=== PATIENT | male | born 1990 | race African-American/Black ===

== ENCOUNTER 2018-09-13 02:55 | Emergency (ER) | payer SELFPAY ==
[~2018-09-13] VITALS: Ht 177.8 cm; Wt 133.0 kg
[2018-09-13] MEDS ORDERED: CEFTRIAXONE SODIUM 250 MG/VIAL IM ONE (03:30)
[2018-09-13] MEDS ORDERED: AZITHROMYCIN 500 MG TABLET PO ONE (03:30)
[2018-09-13 04:44] VITALS: BP 138/78
[2018-09-13 05:28] LABS: CLARITY URINE CLEAR (CLEAR); COLOR URINE YELLOW (YELLOW); KETONES URINE NEGATIVE (NEGATIVE); LEUKOCYTE ESTERASE URINE NEGATIVE (NEGATIVE); NITRITE URINE NEGATIVE (NEGATIVE); OCCULT BLOOD URINE NEGATIVE (NEGATIVE); PH URINE 5.5 (4.5-8.0); PROTEIN URINE NEGATIVE (NEGATIVE); SPECIFIC GRAVITY URINE 1.018 (1.005-1.030); UROBILINOGEN URINE 0.2 E.U./dL (0.2-1.0)
[2018-09-15 04:13] LABS: CHLAMYDIA TRACHOMATIS NAA Negative (Negative); NEISSERIA GONORRHOEAE NAA Negative (Negative)
== END 2018-09-13 04:56 | disposition home or self-care (01) ==
LOC: ER 02:55
DX: R36.9 Urethral discharge, unspecified (principal); F17.200 Nicotine dependence, unspecified, uncomplicated; F12.10 Cannabis abuse, uncomplicated
CPT/HCPCS: 81003; 87491; 87591; 96372; 99283; J0696